=== PATIENT | female | born 1955 | race Caucasian/White ===

== ENCOUNTER 2022-07-17 10:35 | Inpatient (IN) ==
--- NOTE | 2022-06-28 13:41 | PAT Medication Instructions ---
Medication Instructions Date of Service June 28, 2022 Home Medications Medication Instructions Recorded celecoxib 200 mg capsule 200 mg PO BID #180 caps 10/25/21 celecoxib 200 mg capsule 200 mg PO BID calcium 500 mg tablet 500 mg PO QAM diclofenac sodium 1 % topical gel 2 gm topical QID PRN Pain famotidine 20 mg tablet (Pepcid) 20 mg PO BID fluticasone propionate 50 mcg/actuation nasal spray,suspension (Flonase Allergy Relief) 2 spray intranasal DAILY PRN Congestion levothyroxine 137 mcg tablet 137 mcg PO QAM lisinopril 10 mg-hydrochlorothiazide 12.5 mg tablet 1 tab PO QAM loratadine 10 mg tablet 10 mg PO DAILY PRN Congestion omega 6-fue-lrp-fish oil 1,000 mg (120 mg-180 mg) capsule (Fish Oil) 1 cap PO QAM ASK your surgeon for instructions celecoxib 200 mg capsule 200 mg PO BID diclofenac sodium 1 % topical gel 2 gm topical QID PRN Pain STOP taking 2 weeks before surgery (or as soon as possible if surgery is within 2 weeks) omega 5-tqd-ann-fish oil 1,000 mg (120 mg-180 mg) capsule (Fish Oil) 1 cap PO QAM DO NOT take the morning of surgery calcium 500 mg tablet 500 mg PO QAM lisinopril 10 mg-hydrochlorothiazide 12.5 mg tablet 1 tab PO QAM loratadine 10 mg tablet 10 mg PO DAILY PRN Congestion Take morning of surgery With a small sip of water, OTHERWISE NOTHING TO EAT OR DRINK AFTER MIDNIGHT: famotidine 20 mg tablet (Pepcid) 20 mg PO BID fluticasone propionate 50 mcg/actuation nasal spray,suspension (Flonase Allergy Relief) 2 spray intranasal DAILY PRN Congestion (if needed) levothyroxine 137 mcg tablet 137 mcg PO QAM Take evening before surgery famotidine 20 mg tablet (Pepcid) 20 mg PO BID fluticasone propionate 50 mcg/actuation nasal spray,suspension (Flonase Allergy Relief) 2 spray intranasal DAILY PRN Congestion (if needed) loratadine 10 mg tablet 10 mg PO DAILY PRN Congestion (if needed) Other Notes If you have any questions please call us at [phone] or [phone] or [phone] or [phone]
--- NOTE | 2022-07-03 11:00 | Anesthesiology Consultation ---
Date of Service July 03, 2022 Assessment & Plan (1) Encounter for pre-operative examination: - COVID screening: Per assessment on 07/03: No known COVID-19 positive contacts or current COVID-19 related symptoms. Travel screen negative. Patient vaccinated. At surgeon discretion if preop Covid testing being done. - RUE limb restriction s/p mastectomy Chart Review Chart Review: Acceptable Risk for Surgery and Patient seen in Pre Admission Testing Teaching & Discussion Pre-Anesthesia Teaching/Discussion Notes: Instructed NPO after midnight before surgery,except medications with 15 cc of water. Medication instructions provided according to the PAT guidelines. History Surgery Operation Date: 07/17/22 07:45 Proposed Procedures p L3-L5 Decompression and Fusion, Spinal Cord Monitoring - Malik Hyman DO Height/Weight Height: 5 ft 5 in Weight: 120.3 kg Allergies Allergy/AdvReac Type Severity Reaction Status Date / Time lovastatin AdvReac Unknown myalgias Verified 06/28/22 11:32 Medications Home Medications Medication Instructions Recorded Confirmed Last Taken celecoxib 200 mg capsule 200 mg PO BID #180 caps 10/25/21 06/28/22 Unknown calcium 500 mg tablet 500 mg PO QAM 06/28/22 06/28/22 Unknown diclofenac sodium 1 % topical gel 2 gm topical QID PRN Pain 06/28/22 06/28/22 Unknown famotidine 20 mg tablet (Pepcid) 20 mg PO BID 06/28/22 06/28/22 Unknown fluticasone propionate 50 2 spray intranasal DAILY PRN 06/28/22 06/28/22 Unknown mcg/actuation nasal Congestion spray,suspension (Flonase Allergy Relief) levothyroxine 137 mcg tablet 137 mcg PO QAM 06/28/22 06/28/22 Unknown lisinopril 10 1 tab PO QAM 06/28/22 06/28/22 Unknown mg-hydrochlorothiazide 12.5 mg tablet loratadine 10 mg tablet 10 mg PO DAILY PRN Congestion 06/28/22 06/28/22 Unknown omega 6-sji-sba-fish oil 1,000 mg 1 cap PO QAM 06/28/22 06/28/22 Unknown (120 mg-180 mg) capsule (Fish Oil) Past Medical History Medical History Allergic rhinitis Asymptomatic age-related postmenopausal state Benign essential hypertension Breast cancer 2019 > S/P B/L mastectomy RUE limb restriction Chronic GERD Chronic low back pain History of COVID-19 2019 > not hospitalized Hyperlipidemia Hypothyroidism Lumbar radicular pain Morbid obesity Osteoarthritis Sacroiliitis Exercise / Class Metabolic Activity III < 4 Walking/Shop/Light housework (one FS (no CP, + SOB felt 2/2 worsening LE radiculopathy)) Past Family History Family History Mother Bone cancer Smoker Father Cardiac disorder Malignant neoplasm of urinary bladder Smoker Past Surgical History Surgical History H/O bilateral mastectomy 2019 H/O section x2 H/O lymph node excision axillary > right History of airway aspiration Per patient, was told after 2019 [place] colonoscopy that she aspirated during procedure (scanned into [place]) History of appendectomy History of carpal tunnel release History of colonoscopy History of dilatation and curettage History of knee replacement left History of tonsillectomy Hx of ectopic with removal Presence of bilateral breast implant Past Anesthesia History No Family Hx of Anesthesia Complications and Other (Per patient, was told after 2019 [place] colonoscopy that she aspirated during procedure (scanned into [place])) History of PONV No Hx of Motion Sickness and History of PONV Social History Smoking Status: Never smoker Do You Dip or Chew Tobacco: No Hx Alcohol Use: No Hx Substance Use: No substance use type: does not use Review of Systems Patient denies chest pain, shortness of breath, fever, chills, cough, wheezing, palpitations. Physical Exam Vital Signs VITALS BP 117/79 P 69 TEMP 9.0 SP02 96%RA RESP 16 PHYSICAL Full cervical extension range of motion. Full TMJ range of motion. TMD 3 finger breaths Mallampati Score 3 Dentition: intact, + caps Lungs: clear throughout to auscultation Cardiac: regular rate and rhythm, no murmurs noted Spine: normal Carotid arteries: negative bruit Extremities: no edema Thick neck Lab Results Anesthesia Preop Results Results Anesthesia Widget: WBC 5.99 K/ul (4.8-10.8) 07/03/22 Hgb 13.3 g/dl (12.0-16.0) 07/03/22 Hct 40.2 % (37.0-47.0) 07/03/22 Plt 293 K/uL (130-400) 07/03/22 Na 138 mmol/L (136-145) 07/03/22 K 4.1 mmol/L (3.5-5.1) 07/03/22 Cl 101 mmol/L (98-107) 07/03/22 CO2 32 mmol/L (21-32) 07/03/22 BUN 13 mg/dl (6-23) 07/03/22 Creat 0.54 mg/dl (0.6-1.2) L 07/03/22 Glucose Level 88 mg/dl (70-99(Fasting)) 07/03/22 PT 10.8 Seconds (9.0-12.0) 07/03/22 PTT 25.9 Seconds (21.0-31.0) 07/03/22 INR 1.0 (0.9-1.1) 07/03/22 Urine Color Yellow 07/03/22 Urine Appearance Clear (Clear) 07/03/22 Urine pH 7.0 (4.5-7.5) 07/03/22 Urine Specific [place] 1.012 (1.000-1.030) 07/03/22 Urine Protein Negative (Negative) 07/03/22 Urine Glucose (UA) Negative (Negative) 07/03/22 Urine Ketones Negative (Negative) 07/03/22 Urine Blood Negative (Negative) 07/03/22 Urine Nitrite Negative (Negative) 07/03/22 Urine Bilirubin Negative (Negative) 07/03/22 Urine Urobilinogen Negative (Negative) 07/03/22 Urine Leukocyte Esterase Negative (Negative) 07/03/22 Blood Type A Negative 07/03/22 Antibody Screen NEGATIVE 07/03/22 Testing Electrocardiogram Date: 07/03/22 NSR at 69bpm. Cannot r/o anterior infarct, age undetermined. 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 Chest X-Ray Date: 07/03/22 FINDINGS: PA and lateral chest radiographs are compared to study dated 06/06/2010. The heart is enlarged. The pulmonary vasculature is noncongested. Chronic interstitial thickening is similar to previous. The lungs and pleural spaces are clear noting bibasilar scarring/atelectasis. There is no pneumothorax. The skeletal structures are osteopenic. The bony thorax appears intact. Degenerative change is noted in the spine. IMPRESSION: Cardiomegaly with no active disease in the chest. COVID-19 Risk Screen Screening Information COVID-19 Screen Date: 07/03/22 Exposure 21 Days Family/Household +COVID Last 21 Days: No Exposure 10 Days Any COVID Exposure Last 10 Days: No Symptoms Last 10 Days Experienced COVID Sx Last 10 Days: No + COVID 0-90 Days COVID + in Last 0-90 Days: No
[~2022-07-17 10:35] MED LIST: ACETAMINOPHEN 500 MG TAB PO SCH; CeleBREX 200 MG CAP PO SCH; GABAPENTIN 300 MG CAP PO SCH; LR 15ML/HR IV SCH; ceFAZolin 2000MG 2,000 MG/15 ML SYR IV SCH
[2022-07-17] MEDS ORDERED: ONDANSETRON INJ 2 MG/ML 2 ML VIAL IV PRN ×2 (11:23→17:13)
[2022-07-17] MEDS ORDERED: PROMETHAZINE HCL 12.5 MG in SODIUM CHLORIDE 0.9% 50 ML IV PRN ×2 (11:23→17:13)
[2022-07-17] MEDS ORDERED: NALOXONE HCL 0.4 MG/1 ML VIAL/CARP IV PRN ×2 (11:23→17:13)
[2022-07-17] MEDS ORDERED: HYDROmorphone INJ 1 MG/ML SYRINGE IV PRN (11:23)
[2022-07-17] MEDS ORDERED: ePHEDrine sulfate 50 MG/ML AMP IV PRN (11:23)
[2022-07-17] MEDS ORDERED: FLUMAZENIL 0.1 MG/1 ML 10 ML VIAL IV PRN (11:23)
[2022-07-17] MEDS ORDERED: LABETALOL HCL IV 5 MG/ML 20ML IV PRN (11:23)
[2022-07-17] MEDS ORDERED: ATROPINE SULFATE 0.1 MG/ML 10ML SYR IV PRN (11:23)
[2022-07-17] MEDS ORDERED: fentaNYL citrate 100 MCG/2 ML VIAL ONE (11:44)
[2022-07-17] MEDS ORDERED: MIDAZOLAM HCL 1 MG/ML 2ML VIAL ONE (11:44)
--- NOTE | 2022-07-17 12:59 | History & Physical Bridge Note ---
Date of Service July 17, 2022 History & Physical Bridge Note I have examined the patient, reviewed the History & Physical and in the interval since the performance of the History & Physical I have noted the following changes of clinical significance: no changes noted
--- NOTE | 2022-07-17 13:00 | History & Physical Report ---
Date of Service July 17, 2022 Assessment & Plan (1) Neurogenic claudication due to lumbar spinal stenosis: Plan: L3-L5 decompression and fusion History of Present Illness Chief Complaint: Back and leg pain Primary Care Provider: Tanvir Spring MD This is a 67-year-old female who presents with chronic persistent back and leg pain after failing course of nonoperative care she is here for surgical intervention. Allergies Allergy/AdvReac Type Severity Reaction Status Date / Time lovastatin AdvReac Unknown myalgias Verified 07/17/22 11:07 Home Medications Medication Instructions Recorded Confirmed Type celecoxib 200 mg capsule 200 mg PO BID #180 caps 10/25/21 07/17/22 Rx calcium 500 mg tablet 500 mg PO QAM 06/28/22 07/17/22 History famotidine 20 mg tablet (Pepcid) 20 mg PO BID 06/28/22 07/17/22 History fluticasone propionate 50 2 spray intranasal DAILY PRN 06/28/22 07/17/22 History mcg/actuation nasal Congestion spray,suspension (Flonase Allergy Relief) levothyroxine 137 mcg tablet 137 mcg PO QAM 06/28/22 07/17/22 History lisinopril 10 1 tab PO QAM 06/28/22 07/17/22 History mg-hydrochlorothiazide 12.5 mg tablet loratadine 10 mg tablet 10 mg PO DAILY PRN Congestion 06/28/22 07/17/22 History omega 0-fhj-wge-fish oil 1,000 mg 1 cap PO QAM 06/28/22 07/17/22 History (120 mg-180 mg) capsule (Fish Oil) Past Med/Surg History Medical History Allergic rhinitis Asymptomatic age-related postmenopausal state Benign essential hypertension Breast cancer Chronic GERD Chronic low back pain History of COVID-19 Hyperlipidemia Hypothyroidism Lumbar radicular pain Morbid obesity Osteoarthritis Sacroiliitis Surgical History H/O bilateral mastectomy H/O section H/O lymph node excision History of airway aspiration History of appendectomy History of carpal tunnel release History of colonoscopy History of dilatation and curettage History of knee replacement History of tonsillectomy Hx of ectopic Presence of bilateral breast implant Family History Mother Bone cancer Smoker Father Cardiac disorder Malignant neoplasm of urinary bladder Smoker Social History Smoking Status: Never smoker Second Hand Exposure: No; Do You Dip or Chew Tobacco: No; Tobacco Cessation Education Requested by Patient: No Hx Alcohol Use: No Hx Substance Use: No Preferred Language: Cymraes Communication Ability: Effective Certified Nurses' Aide Required: No Beliefs That Will Affect Care: None marital status: Current Living Situation: Spouse Other Information That Helps Us Care for You: No Feels Safe at Home: Yes Safety Concerns: Feels Safe At This Time Seatbelt Use: always Assistive Devices: Glasses Physical Exam Physical Exam: Patient is alert and oriented Heart regular rhythm Lungs clear Results & Data Results & Data ([facility]) Vital Signs (Past 12 Hours) Vital Signs Temp Pulse Resp BP Pulse Ox O2 Del Method 07/17/22 11:16 36.9 C 101 H 20 186/113 H 98 Room Air
[2022-07-17] MEDS ORDERED: ceFAZolin 330 MG/ML 1 GM VIAL ONE (13:20)
[2022-07-17] MEDS ORDERED: BUPIVACAINE/EPINEPHRINE 0.25% 1:200,000 30 ML VIAL ONE (13:53)
[2022-07-17] MEDS ORDERED: FLOSEAL HEMOSTATIC MATRIX 10ML TOP ONE ×2 (14:05→15:18)
[2022-07-17] MEDS ORDERED: SURGICEL ABSORB HEMOSTAT 2IN X 14IN TOP ONE (15:16)
[2022-07-17] MEDS ORDERED: PHENYLEPHRINE 100MCG/ML 5ML SYR ONE (15:25)
[2022-07-17] MEDS ORDERED: ONDANSETRON INJ 2 MG/ML 2 ML VIAL ONE (15:25)
[2022-07-17] MEDS ORDERED: LIDOCAINE 2% MPF LOCAL 5 ML VIAL INFIL ONE (15:25)
[2022-07-17] MEDS ORDERED: ROCURONIUM BROMIDE 10 MG/ML 5 ML VIAL IV ONE (15:25)
[2022-07-17] MEDS ORDERED: PROPOFOL IV EMULSION 10 MG/ML 20 ML VIAL IV ONE (15:25)
[2022-07-17] MEDS ORDERED: ePHEDrine sulfate 50 MG/ML AMP ONE (15:25)
[2022-07-17] MEDS ORDERED: NEOSTIGMINE METHYLSULFATE 1 MG/ML 10ML VIAL ONE (15:25)
[2022-07-17] MEDS ORDERED: SUCCINYLCHOLINE CHLORIDE 20 MG/ML 10 ML VIAL IV ONE (15:25)
[2022-07-17] MEDS ORDERED: GLYCOPYRROLATE 0.2 MG/ML VIAL ONE (15:25)
[2022-07-17] MEDS ORDERED: DEXAMETHASONE SOD INJ 4 MG/ML VIAL ONE (15:25)
--- NOTE | 2022-07-17 15:38 | Operative Report ---
Post Operative Report Pre & Post Diagnosis Operation Date: 07/17/22 12:25 Pre-Op Diagnosis: Neurogenic claudication due to lumbar spinal stenosis Spinal listhesis L3-L4 Morbid obesity Post-Op Diagnosis: Same I identified the patient and participated in the time-out.: Yes Procedure Operation Date: 07/17/22 12:25 Actual Procedures #1 lumbar decompression with bilateral medial facetectomies and foraminotomies L2-L3, L3-L4 and L4-L5. #2 posterior spinal fusion L3-L4 L4-L5. #5 placement posterior instrumentation L3-L5. #4 interbody fusion L3-L4 L4-L5 per #5 placement of Spira 15 x 26 mm at L3-L4 and 14 x 26 mm at L4-5. #6 placement locally harvested morselized autograft in the posterior gutters. #7 placement of I factor combined with V toss in the interbody space and posterior lateral gutters. Surgeon Malik Hyman, DO [facility] Helper Joanna Pino Estimated Blood Loss 550 Findings See Below The patient is 5 foot 5 weighing over 120 kg with a BMI in excess of 44. Patient's body habitus created significant technical difficulty required deepest retractors and longer instruments in order to perform her procedure. This had at least 50% increased operative time. Specimens None Indications This is a 67-year-old female who presents above-mentioned diagnosis after failing course of nonoperative care is here for the above-mentioned procedure. Description of Procedure Patient was met with identified informed consent obtained. Patient was then t aken to the operative suite underwent a patient placed in a prone position on the [place] table top Andrew frame. All bony prominences well-padded eyes inspected to ensure no external pressure placed upon them. This point the lumbar spine was prepped and draped in normal sterile fashion. Sharp dissection with the assistance of Bovie cautery was performed down to and exposing the lamina and transverse processes of L3-L4-L5. From caudal to cephalad fashion complete laminectomy of L4 L3 and partial laminectomy of L2 was performed including bilateral medial facetectomies and foraminotomies addressing severe spinal stenosis. Pedicle screws were then placed in L3-L4-L5 bilaterally with assistance of fluoroscopy and the appropriately sized aaron placed. By way of transforaminal approach and right complete discectomy of L4-5 was performed endplates curetted to subcortical bleeding bone and a 14 x 26 mm Spira cage with I factor tapped in position. Then proceeded to L3-L4 and again by way of a transforaminal approach on the right complete discectomy performed endplates curetted to subcortically bone and a 15 x 26 mm Spira cage with I factor tapped in position. The rods were then locked into final position bilaterally. The transverse processes of L3-L4-L5 burred to subcortically bone. I factor amount of the test and locally harvested morselized autograft was placed in the posterior gutters. 15 round ARISTIDES drain inserted. The incision was then closed with 1 Vicryl the fascia 2-0 Vicryl subcutaneously and 4 Monocryl for final skin closure. Steri-Strip sterile dressings placed. Patient awakened taken to PACU in stable condition. Please note spinal cord monitoring was utilized at the procedure no changes noted. Lastly Joanna Pino was present out the entire procedure involved the patient positioning complex portions of the surgery and final skin closure. I attest to the content of the Intraoperative Record and any orders documented therein. Any exceptions are noted below.
--- NOTE | 2022-07-17 15:50 | Fluoroscopy Report ---
FL lumbar spine 2-3V CLINICAL HISTORY: L3-5 DFI TECHNIQUE: 2 views were obtained with the C-arm in the OR with the above procedure. Total fluoroscopy time was 27.4 seconds. Radiation dose was 23.32 mGy. Comparison: None available at the time of this dictation. FINDINGS/IMPRESSION: Intraoperative images were obtained of L3-L5 discectomy and fusion. Please correlate with intraoperative fluoroscopy and operative report. ACT 112: Negative or not required by law. Electronically signed by: Chaz Singh M.D. 07/17/2022 3:49 PM
[2022-07-17] MEDS: fentaNYL citrate 100 MCG/2 ML VIAL IV PRN ×2 (16:18→16:29)
--- NOTE | 2022-07-17 16:49 | Anesthesiology Progress Note ---
Date of Service July 17, 2022 Anesthesia Post Procedure Vital Signs Vital Signs: Temp Pulse Pulse Resp BP BP Pulse Ox 07/17/22 16:35 96 H 12 128/80 91 07/17/22 16:25 95 H 15 122/76 91 07/17/22 16:15 96 H 16 115/77 92 07/17/22 16:06 102 H 17 132/76 92 07/17/22 15:56 97.5 F L 106 H 14 149/93 H 95 07/17/22 11:16 98.4 F 101 H 20 186/113 H 98 O2 Del Method O2 Flow Rate 07/17/22 16:35 Nasal Cannula 2 07/17/22 16:25 Nasal Cannula 2 07/17/22 16:15 Oxymask 5 07/17/22 16:06 Oxymask 5 07/17/22 15:56 Oxymask 5 07/17/22 11:16 Room Air Pain Intensity Lower Back: Pain Intensity: 5 Back: Pain Intensity: 1 Transfer of Care Handoff Completed per policy Notes Mental Status: alert / awake / arousable and participated in evaluation Patient Amnestic to Procedure: Yes Nausea / Vomiting: adequately controlled Pain: adequately controlled Airway Patency, RR, SpO2: stable & adequate BP & HR: stable & adequate Hydration State: stable & adequate Anesthetic Complications: no major complications apparent and Pt Satisfied with anesthetic care
[2022-07-17] MEDS ORDERED: FAMOTIDINE 20 MG TAB PO PRN (17:13)
[2022-07-17] MEDS ORDERED: SOD PHOSPHATE/SOD BIPHOSPHATE ENEMA 132 ML BTL PR PRN (17:13)
[2022-07-17] MEDS ORDERED: HYDROmorphone INJ 0.5 MG/0.5 ML SYR IV PRN (17:13)
[2022-07-17] MEDS ORDERED: METOCLOPRAMIDE HCL INJ 5 MG/ML 2 ML VIAL IV PRN (17:13)
[2022-07-17] MEDS ORDERED: bisacodyL 10 MG SUPP PR PRN (17:13)
[2022-07-17] MEDS ORDERED: DO NOT ADMINISTER PNEUMOCOCCAL VACCINE PRN (17:13)
[2022-07-17] MEDS ORDERED: hydrOXYzine HCl 25 MG TAB PO PRN (17:13)
[2022-07-17] MEDS ORDERED: MAGNESIUM HYDROXIDE SUSP 30 ML UDC PO PRN (17:13)
[2022-07-17] MEDS ORDERED: LORazepam 2 MG/1 ML VIAL IV PRN (17:13)
[2022-07-17] MEDS ORDERED: ACETAMINOPHEN 500 MG TAB PO PRN (17:13)
[2022-07-17] MEDS ORDERED: ONDANSETRON 4 MG OD TAB PO PRN (17:13)
[2022-07-17] MEDS ORDERED: LORATADINE 10 MG TAB PO PRN (17:13)
[2022-07-17] MEDS ORDERED: DO NOT ADMINISTER FLU VACCINE PRN (17:13)
[2022-07-17] MEDS ORDERED: diphenhydrAMINE Capsule 25 MG CAP PO PRN (17:13)
[2022-07-17] MEDS ORDERED: FLUTICASONE PROPIONATE NA SPR 16 GM BTL PRN (17:13)
[2022-07-17] MEDS ORDERED: ACETAMINOPHEN 1,000 MG/100 ML VIAL IV PRN (17:13)
[2022-07-17] MEDS ORDERED: traMADol HCL 50 MG TABLET PO PRN (17:13)
[2022-07-17] MEDS ORDERED: ALUMINUM/MAGNESIUM SUSP 30 ML UDC PO PRN (17:13)
[2022-07-17] MEDS ORDERED: LORazepam 0.5 MG TAB PO PRN (17:13)
[2022-07-17] MEDS: LACTATED RINGER'S 1,000 ML IV SCH (17:50)
[2022-07-17] MEDS: FAMOTIDINE 20 MG TAB PO SCH (20:15)
[2022-07-17] MEDS: ceFAZolin 2000MG 2,000 MG/15 ML SYR IV SCH (20:16)
[2022-07-17] MEDS: DOCUSATE SODIUM/SENNA 50/8.6MG TAB PO SCH (20:16)
[2022-07-17] MEDS: oxyCODONE HCL IR 5 MG TAB (IMMEDIATE RELEASE) PO PRN (21:28)
[2022-07-18] MEDS: oxyCODONE HCL IR 5 MG TAB (IMMEDIATE RELEASE) PO PRN ×5 (01:37→21:09)
[2022-07-18] MEDS: LACTATED RINGER'S 1,000 ML IV SCH (02:50)
[2022-07-18] MEDS: ceFAZolin 2000MG 2,000 MG/15 ML SYR IV SCH (05:45)
[2022-07-18] MEDS: POLYETHYLENE (MIRALAX) 17 GM PACK PO SCH ×3 (05:45→17:18)
[2022-07-18 06:54] LABS: Basophils # (auto) 0.02 K/uL (0-0.2); Basophils % (auto) 0.2 %; Hematocrit (blood only) 36.8 % (37.0-47.0); Hemoglobin 12.3 g/dl (12.0-16.0); Immature Granulocytes # (auto) 0.14 K/uL (0.01-0.20); Immature Granulocytes % (auto) 1.1 %; Lymphocytes # (auto) 0.84 K/uL (1.2-3.4); Lymphocytes % (auto) 6.7 %; Mean Corpuscular Hemoglobin 29.1 pg (25.0-34.0); Mean Corpuscular Hgb Conc 33.4 g/dL (32.0-36.0); Mean Corpuscular Volume 87.2 fL (80.0-100.0); Mean Platelet Volume 8.7 fL (9.4-12.4); Monocytes # (auto) 0.96 K/uL (0.11-0.59); Monocytes % (auto) 7.7 %; Neutrophils # (auto) 10.57 K/uL (1.40-6.50); Neutrophils % (auto) 84.3 %; Platelet Count 317 K/uL (130-400); RDW Coefficient of Variation 14.1 % (11.5-14.5); RDW Standard Deviation 45.2 fL (36.4-46.3); Red Blood Count 4.22 M/uL (4.20-5.40); White Blood Count 12.53 K/ul (4.8-10.8)
[2022-07-18 07:06] LABS: BUN Creatinine Ratio 19.4 (10-20); Calcium 9.9 mg/dl (8.5-10.1); Creatinine Clr Calc Pharmacy 108.8 ml/min; Est GFR (African American) 106.9 ml/min; Est GFR (Non-African American) 92.2 ml/min; Potassium 4.8 mmol/L (3.5-5.1)
[2022-07-18] MEDS: dexAMETHasone 6 MG in SYRINGE 0 ML IV SCH (08:23)
[2022-07-18] MEDS: CALCIUM CARBONATE 1250MG TAB PO SCH (08:24)
[2022-07-18] MEDS: FAMOTIDINE 20 MG TAB PO SCH ×2 (08:25→21:09)
[2022-07-18] MEDS: LEVOTHYROXINE SODIUM 137 MCG TABLET PO SCH (08:25)
[2022-07-18] MEDS: LISINOPRIL/HCTZ 10/12.5MG TAB PO SCH (08:25)
--- NOTE | 2022-07-18 13:15 | Orthopedic Progress Note ---
Date of Service July 18, 2022 Assessment & Plan (1) Neurogenic claudication due to lumbar spinal stenosis: Plan: At this time continue physical therapy monitor her ARISTIDES operatively discharge home in the next few days. Admission and Anticipated Discharge Date Admission Date: July 17, 2022 Subjective Back pain controlled leg pain improved Physical Exam Physical Exam: Patient is comfortable in bed. Is good strength testing. Results & Data ([facility]) Vital Signs (Past 12 Hours) Vital Signs Temp Pulse Pulse Resp BP Pulse Ox O2 Del Method 07/18/22 11:13 37.1 C 94 H 16 106/67 92 Room Air 07/18/22 07:07 37 C 92 H 18 160/94 H 95 Room Air 07/18/22 05:32 37.1 C 117 H 18 128/77 94 Room Air
--- NOTE | 2022-07-18 19:43 | Consultation ---
Date of Consultation July 18, 2022 Assessment & Plan (1) Neurogenic claudication due to lumbar spinal stenosis: POD #1 s/p lumbar decompression-fusion by Dr Hyman. defer pain management, disposition, etc to primary ortho team. (2) Abdominal bloating: passing flatus and no vomiting thus ileus not suspected symptoms likely to improve when she does have a stool, however will follow this carefully (3) Morbid obesity: BMI 44 hopefully she will be able to pursue more active lifestyle with back feeling better post-surgery (4) Chronic GERD: cont pepcid bid (5) Benign essential hypertension: controlled cont lisinopril/hct (6) Hypothyroidism: TSH 03/10 wnl cont synthroid as is Plan DVT proph - SCDs, ambulation; chemical means contraindicated due to recent surgery mildly high glucose on am labs - likely due to IV steroid use. consider a1c testing. mild leukocytosis - likely due to IV steroids; no evidence of any infectious process. follow temp curve, etc. thank you for the consult. will follow with you. History of Present Illness Requesting Physician: Dr Timothy Hyman Reason for Consultation: post-op medical management Attending Physician: Malik Hyman, DO History of Present Illness 67yo female with severe lumbar spinal stenosis who is now POD #1 from lumbar decompression-fusion procedure by Dr Hyman. During my assessment her only complaint is that of abdominal bloating. Passing flatus but no stool. Further, she has been able to eat her meals today despite the bloating. Pain in low back is present but her pre-operative b/l leg pain/paresthesias are much better. Only has minimal paresthesias of right foot at this time. Otherwise feeling good today. Allergies Allergy/AdvReac Type Severity Reaction Status Date / Time lovastatin AdvReac Unknown myalgias Verified 07/17/22 11:07 Home Medications Medication Instructions Recorded Confirmed Type celecoxib 200 mg capsule 200 mg PO BID #180 caps 10/25/21 07/17/22 Rx calcium 500 mg tablet 500 mg PO QAM 06/28/22 07/17/22 History famotidine 20 mg tablet (Pepcid) 20 mg PO BID 06/28/22 07/17/22 History fluticasone propionate 50 2 spray intranasal DAILY PRN 06/28/22 07/17/22 History mcg/actuation nasal Congestion spray,suspension (Flonase Allergy Relief) levothyroxine 137 mcg tablet 137 mcg PO QAM 06/28/22 07/17/22 History lisinopril 10 1 tab PO QAM 06/28/22 07/17/22 History mg-hydrochlorothiazide 12.5 mg tablet loratadine 10 mg tablet 10 mg PO DAILY PRN Congestion 06/28/22 07/17/22 History omega 6-bhj-uzf-fish oil 1,000 mg 1 cap PO QAM 06/28/22 07/17/22 History (120 mg-180 mg) capsule (Fish Oil) oxycodone 5 mg tablet 5 mg PO Q6H PRN pain, severe #30 07/18/22 Rx tabs tramadol 50 mg tablet 50 mg PO Q6H PRN pain, moderate 07/18/22 Rx #30 tabs Patient History Medical History Allergic rhinitis Asymptomatic age-related postmenopausal state Benign essential hypertension Breast cancer 2019 > S/P B/L mastectomy RUE limb restriction Chronic GERD Chronic low back pain History of COVID-19 2019 > not hospitalized Hyperlipidemia Hypothyroidism Lumbar radicular pain Morbid obesity Osteoarthritis Sacroiliitis Surgical History H/O bilateral mastectomy 2019 H/O section x2 H/O lymph node excision axillary > right History of airway aspiration Per patient, was told after 2019 [place] colonoscopy that she aspirated during procedure (scanned into [employer]) History of appendectomy History of carpal tunnel release History of colonoscopy History of dilatation and curettage History of knee replacement left History of tonsillectomy Hx of ectopic with removal Presence of bilateral breast implant Family History Mother Bone cancer Smoker Father Cardiac disorder Malignant neoplasm of urinary bladder Smoker Social History (Updated 07/19/22 @ 09:56 by Michel Adrian) Smoking Status: Never smoker Second Hand Exposure: No; Hx Alcohol Use: No Hx Substance Use: No Preferred Language: Maltese Communication Ability: Effective 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: No Beliefs That Will Affect Care: None marital status: Current Living Situation: Spouse current occupational status: retired 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 Feels Safe at Home: Yes Seatbelt Use: always Assistive Devices: Cane, Walker and Other Review of Systems Review of Systems: gen - no fevers, chills; eating ok eyes - no visual changes HENT - no sore throat but a little hoarse voice pulm - mild dry cough but no dyspnea or LAWLER CV - no chest pain GI - no pain but some bloating; some reflux type symptoms; no vomiting; no stool yet but passing flatus - since jaimes d/c she is voiding ok musculo - low back pain from operation neuro - no focal motor weakness; no headache psych - did not sleep well last pm endo - denies diabetes Physical Exam Physical Exam: gen - NAD, pleasant, obese eyes - PERRL mouth - MM dry neck - no JVD heart - RRR, s1 s2, no murmur lungs - CTA b/l abd - mild distension but robust BS; NT; no HSM ext - no edema, pulses 2+ b/l neuro - strength 5/5 x both legs psych - a/o x 3 Results & Data ([facility]) Vital Signs (Past 12 Hours) Vital Signs Temp Pulse Resp BP Pulse Ox O2 Del Method 07/18/22 11:13 37.1 C 94 H 16 106/67 92 Room Air Laboratory Results Laboratory Results - last 48 hr 07/17/22 07/17/22 07/18/22 10:54 11:07 06:30 WBC 12.53 H RBC 4.22 Hgb 12.3 Hct 36.8 L MCV 87.2 MCH 29.1 MCHC 33.4 RDW Std Deviation 45.2 RDW Coeff of Camryn 14.1 Plt Count 317 MPV 8.7 L Immature Gran % (Auto) 1.1 Neut % (Auto) 84.3 Lymph % (Auto) 6.7 Wallace % (Auto) 7.7 Eos % (Auto) 0.0 Baso % (Auto) 0.2 Neut # (Auto) 10.57 H Lymph # (Auto) 0.84 L Wallace # (Auto) 0.96 H Eos # (Auto) 0.00 Baso # (Auto) 0.02 Immature Gran # (Auto) 0.14 Sodium Potassium Chloride Carbon Dioxide Anion Gap BUN Creatinine Est Cr Clr Drug Dosing Est GFR ( Amer) Est GFR (Non-Af Amer) BUN/Creatinine Ratio Glucose Calcium SARS-CoV-2, RNA, NAAT NEGATIVE Blood Type A Negative Antibody Screen NEGATIVE Crossmatch See Detail 07/18/22 06:30 WBC RBC Hgb Hct MCV MCH MCHC RDW Std Deviation RDW Coeff of Camryn Plt Count MPV Immature Gran % (Auto) Neut % (Auto) Lymph % (Auto) Wallace % (Auto) Eos % (Auto) Baso % (Auto) Neut # (Auto) Lymph # (Auto) Wallace # (Auto) Eos # (Auto) Baso # (Auto) Immature Gran # (Auto) Sodium 134 L Potassium 4.8 Chloride 98 Carbon Dioxide 29 Anion Gap 7 BUN 13 Creatinine 0.67 Est Cr Clr Drug Dosing 108.8 Est GFR ( Amer) 106.9 Est GFR (Non-Af Amer) 92.2 BUN/Creatinine Ratio 19.4 Glucose 135 H Calcium 9.9 SARS-CoV-2, RNA, NAAT Blood Type Antibody Screen Crossmatch PG Care Time/CCT Total # of Minutes Spent Total Time Spent with Patient: Total time spent is greater than 50% in coordination of care (as documented) at patient's floor/unit and/or counseling patient: Coding Level of Care Code 78077 INT INP/OBS CARE 2/55MIN Diagnoses Neurogenic claudication due to lumbar spinal stenosis M48.062 Abdominal bloating R14.0 Morbid obesity E66.01 Chronic GERD K21.9 Benign essential hypertension I10 Hypothyroidism E03.9
[2022-07-18] MEDS: DOCUSATE SODIUM/SENNA 50/8.6MG TAB PO SCH (21:09)
[2022-07-19] MEDS: POLYETHYLENE (MIRALAX) 17 GM PACK PO SCH ×3 (01:19→12:01)
[2022-07-19] MEDS: oxyCODONE HCL IR 5 MG TAB (IMMEDIATE RELEASE) PO PRN ×2 (06:43→13:22)
--- NOTE | 2022-07-19 08:26 | Discharge Summary ---
Date of Service July 19, 2022 Admission HPI Per Admitting Provider This is a 67-year-old female who presents with chronic persistent back and leg pain after failing course of nonoperative care she is here for surgical intervention. Principal Diagnosis Lumbar spinal stenosis with neurogenic claudication Discharge Data Allergies Allergy/AdvReac Type Severity Reaction Status Date / Time lovastatin AdvReac Unknown myalgias Verified 07/17/22 11:07 Consultations 07/17/22 17:13 Consult Hospitalist Routine Procedures Performed Operation Date: 07/17/22 12:25 Actual Procedures p L3-L5 Decompression and Fusion, Spinal Cord Monitoring(Not Applicable) - Malik Hyman DO Ordered Studies 07/17/22 12:25 FL lumbar spine 2-3V Routine Hospital Course (1) Neurogenic claudication due to lumbar spinal stenosis: Patient went lumbar decompression fusion tolerated this well was taken to orthopedic for postop labor postop day 1 she was up and ambulating progress postop day #2. Back pain controlled. Leg pain markedly improved. Excellent strength testing. ARISTIDES drain decreasing appropriate. Subsequent discharge home. Discharge orders instructions found in chart for further review. Total Time Total Time Spent Total Time Spent (In Minutes): 20 minutes Discharge Plan Discharge Items Patient Disposition: Home - Self-Care Reason For Visit: Spinal Stenosis, Lumbar Region with Neurogenic Cla Discharge Diagnosis: Lumbar spinal stenosis with spondylolisthesis and radiculopathy Activity: As commented below Non-emergency contact: Primary Care Provider Call non-emergency contact if: you have any medication questions Follow-up/Referrals: Tanvir Spring MD [Primary Care Provider] - Diet: Regular Addtl Attending Provider Instructions: ACTIVITY RECOMMENDATIONS: SELF CARE INSTRUCTIONS AFTER THORACIC/LUMBAR FUSIONS 1. You may walk to your tolerance. It is good exercise for your legs and back. Expect some back and intermittent leg aches and pains. 2. You may perform "counter-top" level activities (make a sandwich, aisha with a project, etc.). 3. No bending or lifting of more than 10 pounds or back twisting of any nature (roll like a log when turning in bed). 4. You may ride in a car for 20-30 minutes at a time. No driving until after your first visit with your doctor. 5. Frequent changes of position and restricting sitting to 30 minutes at a time will help limit the amount of back spasms and stiffness you may experience. 6. You may discontinue the use of ambulatory aids (cane, crutches, etc.) once your strength and confidence allow. 7. You may billposting supervisor the shower and let water strike your incision when you arrive home at least once daily. Do not take a tub bath, sit in a hot tub or go into a swimming pool until after your first recheck in the office. SPECIAL CARE INSTRUCTIONS: VERY IMPORTANT TO READ AND REVIEW A. Your surgical incision has been closed with a cosmetic suture under the skin that will dissolve in about 6 weeks. In 14 days, you can use a pair of clean scissors and cut the suture that is left outside of the skin at the ends of your incision. 1. The small skin tapes can be removed 7 days after surgery if they have not fallen off by that point. 2. You may keep the wound open to air as much as possible to promote healing after post-op day number 5 unless told otherwise by your doctor. 3. If you think the wound looks like it is becoming infected (redness or worsening drainage) and/or you are experiencing fever, chill or worsening back pain and muscle spasms, contact the office so that we may evaluate you as soon as possible. B. Complications are uncommon, but please contact us if you have any signs or symptoms of: 1. wound infection (fever higher than 102.5 degrees F, redness, separation of wound, drainage, or increasing pain from the incision) 2. blood clots in legs (pain, swelling, redness and warmth in legs) 3. urinary tract infection (fever higher than 102.5 degrees F, burning upon urination or increased frequency of urination) 4. nerve problems (inability to walk on your toes or heels, numbness, loss of bowel or bladder control) 5. any other symptoms that concern you C. Please call the office at if you have any concerns or questions about your operation or recovery. D. No smoking! Smoking drastically decreases the chance of a solid fusion. E. Do not take any anti-inflammatory medications (Indocin, Advil, Motrin, Aspirin, Naprosyn, etc.) as these may inhibit the chance of a solid fusion. Tylenol is okay to take for pain. MANAGING PAIN AFTER SPINAL SURGERY 1. Narcotic medication is intended for short-term use and will be provided for surgical pain. Surgical pain usually lasts for a period of 4-6 weeks. Narcotic medication includes Percocet, Vicodin, Darvocet, Tylenol #3 or Lortab. 2. Longer-term pain is more appropriately treated with non-narcotic medication such as Tylenol ES. 3. Muscle spasm is not appropriately treated with narcotics. Muscle relaxers such as Soma, Flexeril or Skelaxin can be used along with Tylenol ES. 4. Remember that we all live with some "aches and pains". This is not unusual or uncommon after an injury or as we get older. a. Back pain is expected and may include muscle spasms for 4 to 6 weeks after surgery. The pain should gradually improve. If the pain worsens for no apparent reason, please contact the office. b. Intermittent leg pain may also be experienced and should not be concerned about unless it worsens for no apparent reason. If so, please contact the office. 5. We will provide appropriate medication within the normal guidelines of their prescribed use. We will also be very cautious and aware of potential abuse and extended duration of patients' medication needs. a. Pain medications are for your comfort and to assist with sleep and rest so that the tissue can heal. They are not provided in order to return to normal activity and should not be used through the day. To do so or worsening pain at night can result from ongoing tissue damage and development of tolerance to the prescribed medicine. 6. Please allow 2-3 days to process refills. Prescriptions will not be mailed but must be picked up at the office. FOLLOW UP VISIT: Keep your scheduled follow-up appointment. Any questions, please call the office at . Pending Studies at Discharge: No Stand-Alone Forms: [facility], Smoking Cessation Medications and DC Order Prescriptions: New tramadol 50 mg tablet 50 mg PO Q6H PRN (Reason: pain, moderate) Qty: 30 0RF oxycodone 5 mg tablet 5 mg PO Q6H PRN (Reason: pain, severe) Qty: 30 0RF Continued celecoxib 200 mg capsule 200 mg PO BID Qty: 180 3RF calcium 500 mg Tablet 500 mg PO QAM omega 4-dpy-auf-fish oil [Fish Oil] 1,000 mg (120 mg-180 mg) Capsule 1 cap PO QAM levothyroxine 137 mcg tablet 137 mcg PO QAM famotidine [Pepcid] 20 mg tablet 20 mg PO BID lisinopril-hydrochlorothiazide 10-12.5 mg tablet 1 tab PO QAM fluticasone propionate [Flonase Allergy Relief] 50 mcg/actuation spray,suspension 2 spray INTNAS DAILY PRN (Reason: Congestion) loratadine 10 mg tablet 10 mg PO DAILY PRN (Reason: Congestion) Admission Data Admit Date/Time: 07/17/22 15:41 Attending Provider: Malik Hyman Admit Provider: Malik Hyman Primary Care Provider: Tanvir Spring Other Providers: Roni Zuniga ; Michel Rutledge
[2022-07-19] MEDS: CALCIUM CARBONATE 1250MG TAB PO SCH (08:27)
[2022-07-19] MEDS: dexAMETHasone 6 MG in SYRINGE 0 ML IV SCH (08:28)
[2022-07-19] MEDS: LISINOPRIL/HCTZ 10/12.5MG TAB PO SCH (08:28)
[2022-07-19] MEDS: FAMOTIDINE 20 MG TAB PO SCH (08:28)
[2022-07-19] MEDS: LEVOTHYROXINE SODIUM 137 MCG TABLET PO SCH (08:28)
--- NOTE | 2022-07-19 11:42 | Hospitalist Progress Note ---
Date of Service July 19, 2022 Assessment & Plan (1) Neurogenic claudication due to lumbar spinal stenosis: Plan: POD #2 s/p lumbar decompression-fusion by Dr Hyman. doing well from ortho standpoint and is being set up for discharge to home today by Dr Hyman. (2) Abdominal bloating: Plan: passing flatus and no vomiting thus ileus still not suspected eating well without intolerance we discussed bowel regimen for home -- will add to d/c instructions (3) Morbid obesity: Plan: BMI 44 hopefully she will be able to pursue more active lifestyle with back feeling better post-surgery (4) Chronic GERD: Plan: cont pepcid bid (5) Benign essential hypertension: Plan: controlled cont lisinopril/hct recent BMP wnl (6) Hypothyroidism: Plan: TSH 03/10 wnl cont synthroid as is Plan DVT proph - ambulation; chemical means contraindicated due to recent surgery mildlyhigh glucose on am labs 07/18 - likely due to IV steroid use. we discussed a1c testing the next time she sees her PCP. mild leukocytosis 07/18 - likely was due to IV steroids; still no evidence of any infectious process with normal temps. from medical standpoint ok for d/c home Admission and Anticipated Discharge Date Admission Date: July 17, 2022 Subjective feeling good sitting in chair only has nausea when she takes pain meds able to eat breakfast and has had no vomiting plenty of flatus no stool yet no dyspnea or LAWLER when she worked with PT this am Review of Systems Review of Systems: gen - no fevers, tired (didn't sleep well last pm) cv - no cp pulm - no dyspnea GI - no pain (minimal bloating today) Physical Exam Physical Exam: gen - NAD, pleasant, obese; sitting in chair mouth - MMM today neck - no JVD heart - RRR, s1 s2, no murmur lungs - CTA b/l abd - mild distension - no change from yesterday; BS+, NT; no HSM ext - no edema, pulses 2+ b/l psych - a/o x 3 Results & Data Results & Data ([facility]) Vital Signs (Past 12 Hours) Vital Signs Temp Pulse Resp BP Pulse Ox O2 Del Method 07/19/22 08:19 36.7 C 84 16 121/75 93 Room Air PG Care Time/CCT Total # of Minutes Spent Total Time Spent with Patient: Total time spent is greater than 50% in coordination of care (as documented) at patient's floor/unit and/or counseling patient: Coding Level of Care Code 92137 SUB INP/OBS CARE 06/13MIN Diagnoses Neurogenic claudication due to lumbar spinal stenosis M48.062 Abdominal bloating R14.0 Morbid obesity E66.01 Chronic GERD K21.9 Benign essential hypertension I10 Hypothyroidism E03.9
== END 2022-07-19 15:22 | disposition home or self-care (01) | DRG 454 ==
LOC: ASU 10:35 → 3E 15:41